=== PATIENT | female | born 1995 | race Caucasian/White ===

== ENCOUNTER 2018-12-14 18:54 | Outpatient (REF) | payer BC, SELFPAY ==
[2018-12-14 19:55] LABS: HCT 39.9 % (36.0-46.0); HGB 13.6 g/dL (12.0-15.5); Mean Corp. HGB Concentration 34.1 g/dL (32.0-36.0); Mean Corpuscular Hemoglobin 32.9 pg (27.0-33.0); Mean Corpuscular Volume 96.4 fL (80-95); Platelet Count 356 x1000/uL (130-400); RBC 4.14 m/cumm (4.00-5.20); RBC Distribution Width 11.9 % (11.7-14.6); White Blood Cell Count 6.51 k/cumm (4.4-10.8)
[2018-12-14 20:20] LABS: ALT 23 U/L (12-78); AST 13 U/L (15-37); Albumin 4.2 g/dL (3.4-5.0); Alkaline Phosphatase 96 U/L (46-116); Anion Gap 10.4 mmol/L (3-11); BUN 13 mg/dL (7-18); Bilirubin, Total 0.6 mg/dL (0.2-1.0); CO2 26.6 mmol/L (21.0-32.0); CREATININE 0.68 mg/dL (0.55-1.02); Calcium 8.8 mg/dL (8.5-10.1); Chloride 102 mmol/L (98-107); Glucose 85 mg/dL (70-100); Potassium 4.4 mmol/L (3.5-5.1); Sodium 139 mmol/L (136-145); TSH 0.91 uIU/mL (0.358-3.74); Total Protein 7.1 g/dL (6.4-8.2)
[2018-12-14 20:45] LABS: Iron 84 ug/dL (50-175); Total Iron Binding Capacity 305 ug/dL (250-450); Transferrin Sat 28 % (15-50)
== END 2018-12-14 19:14 ==
LOC: NCHCN 18:54
PROVIDERS: PCP Internal Medicine; Visit Provider Internal Medicine
DX: G25.81 Restless legs syndrome (principal)
CPT/HCPCS: 80053; 85027; 83540; 83550; 84443

== ENCOUNTER 2020-03-14 09:52 | Outpatient (REF) | payer BC, SELFPAY ==
[2020-03-17 17:29] LABS: Patient Race White; SARS-CoV-2 RNA Undetected (Undetected); SARS-CoV-2 Specimen Source Nasal
== END 2020-03-14 10:12 ==
LOC: NCHCN 09:52
PROVIDERS: PCP Internal Medicine; Visit Provider Internal Medicine
DX: R05 Cough (principal); Z20.828 Contact with and (suspected) exposure to other viral communicable diseases
CPT/HCPCS: U0003

== ENCOUNTER 2020-05-16 20:02 | Outpatient (REF) | payer SELFPAY ==
[2020-05-18 16:38] LABS: COVID-19 RT-PCR UVMMC Result Negative (Negative)
== END 2020-05-16 20:22 ==
LOC: NCHCN 20:02
PROVIDERS: PCP Internal Medicine; Visit Provider Internal Medicine
DX: Z20.828 Contact with and (suspected) exposure to other viral communicable diseases (principal)
CPT/HCPCS: U0003

== ENCOUNTER 2020-11-21 15:57 | Outpatient (REF) | payer BC, SELFPAY ==
[2020-11-21 18:26] LABS: HCT 40.3 % (36.0-46.0); HGB 13.5 g/dL (11.2-15.7); MCH 32.5 pg (27.0-33.0); MCHC 33.5 % (32.0-36.0); MCV 96.9 fL (80-95); MPV 9.7 fL (8.0-11.0); Platelet Count 374 10^3/uL (130-400); RBC 4.16 10^6/uL (3.93-5.22); RDW 12.5 % (11.7-14.6); RDW-SD 44.8 fL; WBC 8.29 10^3/uL (4.4-10.8)
[2020-11-21 18:42] LABS: ALT 19 U/L (14-59); AST 12 U/L (15-37); Albumin 4.1 g/dL (3.4-5.0); Alkaline Phosphatase 68 U/L (46-116); Anion Gap 11.9 mmol/L (3-11); BUN 18 mg/dL (7-18); Bilirubin, Total 0.5 mg/dL (0.2-1.0); CO2 24.1 mmol/L (21.0-32.0); Calcium 9.2 mg/dL (8.5-10.1); Chloride 103 mmol/L (98-107); Glucose 95 mg/dL (74-106); Potassium 4.6 mmol/L (3.5-5.1); Sodium 139 mmol/L (136-145); TSH (W/Ref FT4) 0.82 uIU/mL (0.36-3.74)
[2020-11-24 01:01] LABS: Anaplasma phagocytophilum Negative (Negative); B. miyamotoi PCR Negative (Negative); Babesia divergens/MO-1 Negative (Negative); Babesia duncani Negative (Negative); Babesia microti Negative (Negative); Ehrlichia chaffeensis Negative (Negative); Ehrlichia ewingii/canis Negative (Negative); Ehrlichia muris eauclairensis Negative (Negative)
[2020-11-24 13:53] LABS: Lyme Ab w Rflx to Lyme Confirm Negative (Negative)
== END 2020-11-21 15:58 | disposition home or self-care (01) ==
LOC: NCHCN 15:57
PROVIDERS: PCP Internal Medicine; Visit Provider Nurse Practitioner Family
DX: R53.83 Other fatigue (principal); W57.XXXA Bitten or stung by nonvenomous insect and other nonvenomous arthropods, initial encounter; T14.8XXA Other injury of unspecified body region, initial encounter
CPT/HCPCS: 80053; 85027; 87798; 84443; 86618

== ENCOUNTER 2021-08-30 09:10 | Outpatient (REF) | payer BC, SELFPAY ==
[2021-08-30 19:19] LABS: Anion Gap 10.4 mmol/L (3-11); CO2 25.6 mmol/L (21.0-32.0); Chloride 103 mmol/L (98-107); Potassium 4.8 mmol/L (3.5-5.1); Sodium 139 mmol/L (136-145)
== END 2021-08-30 09:11 | disposition home or self-care (01) ==
LOC: NCHCN 09:10
PROVIDERS: PCP Internal Medicine; Visit Provider Nurse Practitioner Family
DX: E25.0 Congenital adrenogenital disorders associated with enzyme deficiency (principal); K52.9 Noninfective gastroenteritis and colitis, unspecified
CPT/HCPCS: 80051